=== PATIENT | female | born 2000 | race African-American/Black ===

== ENCOUNTER 2022-01-01 09:13 | Emergency (ER) | payer OTHER ==
[~2022-01-01] VITALS: Ht 149.9 cm; Wt 59.6 kg
[2022-01-01 09:55] LABS: BASO % 0.7 % (0.0-1.0); EOS # 0.1 10^3/uL (0.0-0.5); EOS % 1.8 % (0.0-3.0); HEMOGLOBIN 12.4 g/dl (12.0-15.5); LYMPH # 2.9 10^3/uL (1.5-5.0); MEAN CORPUSCULAR HEMOGLOBIN 26.4 pg (27.0-33.0); MEAN CORPUSCULAR HGB CONC 32.6 g/dl (32.0-36.5); MONO # 0.4 10^3/uL (0.0-0.8); MONO % 7.4 % (2.0-8.0); NEUTROPHILS # 2.1 10^3/uL (1.5-8.5); NEUTROPHILS % 38.1 % (36.0-66.0); PLATELET COUNT, AUTOMATED 256 10^3/uL (150-450); RED BLOOD COUNT 4.69 10^6/uL (4.00-5.40); WHITE BLOOD COUNT 5.6 10^3/uL (4.0-10.0)
[2022-01-01 10:11] LABS: HCG, SERUM QUALITATIVE NEGATIVE (NEGATIVE)
[2022-01-01 10:16] LABS: BLOOD UREA NITROGEN 11 MG/DL (7-18); CALCIUM LEVEL 9.3 MG/DL (8.5-10.1); CARBON DIOXIDE LEVEL 28 MEQ/L (21-32); CHLORIDE LEVEL 107 MEQ/L (98-107); CREATININE FOR GFR 0.63 MG/DL (0.55-1.30); GLUCOSE, FASTING 80 MG/DL (70-100); POTASSIUM SERUM 3.7 MEQ/L (3.5-5.1); SODIUM LEVEL 136 MEQ/L (136-145)
[2022-01-01 11:20] VITALS: BP 120/75
== END 2022-01-01 11:49 | disposition home or self-care (01) ==
LOC: M ED 09:13
DX: N93.9 Abnormal uterine and vaginal bleeding, unspecified (principal); N64.4 Mastodynia

== ENCOUNTER 2022-05-02 12:19 | Emergency (ER) | payer OTHER ==
[~2022-05-02] VITALS: Ht 152.4 cm; Wt 61.5 kg
[2022-05-02 12:19] VITALS: BP 123/69
== END 2022-05-02 15:56 | disposition left against medical advice (07) ==
LOC: M ED 12:19
DX: Z53.21 Procedure and treatment not carried out due to patient leaving prior to being seen by health care provider (principal)

== ENCOUNTER 2024-05-07 12:53 | Emergency (ER) | payer OTHER ==
[~2024-05-07] VITALS: Ht 152.4 cm; Wt 69.7 kg
[2024-05-07] MEDS ORDERED: ELET40TA PO (13:07)
[2024-05-07] MEDS ORDERED: AMIT10TA7 PO (13:07)
[2024-05-07] MEDS: KETOROLAC 30 MG/ML 1ML VIAL IV ONE (16:15)
[2024-05-07] MEDS: METOCLOPRAMIDE INJ 10MG/2ML VIAL IV ONE (16:15)
[2024-05-07] MEDS: ACETAMINOPHEN 500 MG TAB PO ONE (16:15)
[2024-05-07] MEDS: diphenhydrAMINE 50MG/ML VIAL IV ONE (16:16)
[2024-05-07] MEDS: NS (Normal Saline) 0.9% 1,000 ML IV ONE (16:16)
[2024-05-07 17:35] VITALS: BP 118/63; TEMP 98.4; O2SAT 100
== END 2024-05-07 17:48 | disposition home or self-care (01) ==
LOC: M ED 12:53
DX: G43.909 Migraine, unspecified, not intractable, without status migrainosus (principal)
CPT/HCPCS: 84702; 96361; 96374; 96375; 99284; J1200; J1885; J2765